=== PATIENT | female | born 1950 | race Caucasian/White ===

== ENCOUNTER → 2019-01-30 | Outpatient (CLI) | payer OTHER ==
[~2019-01-30] MED LIST: IOPAMIDOL (ISOVUE-300) 100 ML BTL ONE
== END ==
LOC: CIMAGING 13:15
PROVIDERS: ATTEND Physician Assistant
DX: K50.913 Crohn's disease, unspecified, with fistula (principal); N28.1 Cyst of kidney, acquired; R59.0 Localized enlarged lymph nodes; R19.5 Other fecal abnormalities
CPT/HCPCS: 74177; Q9967; 82565-PO